=== PATIENT | female | born 1980 | race Caucasian/White ===

== ENCOUNTER 2018-10-24 19:48 | Observation (INO) | payer OTHER ==
[~2018-10-24] VITALS: Ht 175.3 cm; Wt 62.5 kg
[2018-10-24] MEDS ORDERED: AUGMENTIN 500-1 EACH PO (20:11)
[2018-10-24 21:03] LABS: EOS # 0.1 (0.04-0.40); EOS % 0.9 % (1.0-5.0); HEMATOCRIT 37.1 % (37.0-47.0); HEMOGLOBIN 11.9 g/dL (12.5-16.0); LYMPH# 2.4 (1.50-4.00); MEAN CELL VOLUME 93 fl (78-100); MEAN CORPUSCULAR HEMOGLOBIN 30 pg (27-31); MEAN CORPUSCULAR HGB CONC 32 g/dL (33-37); MONO # 1.1 (0.20-0.80); PLATELET COUNT 260 K/mm3 (130-400); WHITE BLOOD COUNT 16.3 K/mm3 (4.8-10.8)
[2018-10-24 21:04] LABS: NEU # 12.6 (1.40-6.50)
[2018-10-24 21:13] LABS: ALBUMIN 3.6 g/dL (3.5-5.0); CALCIUM 8.5 mg/dL (8.4-10.2); POTASSIUM 3.6 mmol/L (3.6-5.0); TOTAL BILIRUBIN 0.9 mg/dL (0.2-1.3); TOTAL PROTEIN 6.2 g/dL (6.3-8.2)
[2018-10-24 22:28] LABS: URINE APPEARANCE CLEAR; URINE BILIRUBIN NEGATIVE (NEGATIVE); URINE BLOOD 50 ery/uL (NEGATIVE); URINE COLOR YELLOW; URINE GLUCOSE NEGATIVE (NEGATIVE); URINE KETONE NEGATIVE (NEGATIVE); URINE LEUKOCYTE ESTERASE NEGATIVE (NEGATIVE); URINE NITRATE NEGATIVE (NEGATIVE); URINE PROTEIN(semi-quant) TRACE mg/dL (NEGATIVE); URINE UROBILINOGEN NORMAL (NORMAL)
[2018-10-24 22:29] LABS: URINE MUCUS PRESENT (NOT PRESENT)
[2018-10-24 22:56] VITALS: BP 97/60
[2018-10-24 22:57] VITALS: BP 97/60
[2018-10-24] MEDS ORDERED: AUGMENTIN 875-1 EAC1 PO (22:59)
[2018-10-25] VITALS (10 sets, daily range): BP systolic 90–129; BP diastolic 47–72
[2018-10-25 06:56] LABS: EOS # 0.1 (0.04-0.40); EOS % 1.1 % (1.0-5.0); HEMATOCRIT 29.2 % (37.0-47.0); HEMOGLOBIN 9.2 g/dL (12.5-16.0); LYMPH# 3.3 (1.50-4.00); MEAN CELL VOLUME 94 fl (78-100); MEAN CORPUSCULAR HEMOGLOBIN 30 pg (27-31); MEAN CORPUSCULAR HGB CONC 32 g/dL (33-37); MEAN PLATELET VOLUME 10.6 fl (7.4-10.4); MONO # 0.8 (0.20-0.80); NEU # 4.7 (1.40-6.50); PLATELET COUNT 209 K/mm3 (130-400); RED BLOOD COUNT 3.11 M/mm3 (4.10-5.30); RED CELL DISTRIBUTION WIDTH 13.1 % (11.5-14.5); WHITE BLOOD COUNT 8.9 K/mm3 (4.8-10.8)
[2018-10-25 07:16] LABS: CALCIUM 7.9 mg/dL (8.4-10.2); POTASSIUM 3.7 mmol/L (3.6-5.0)
[2018-10-25 14:34] LABS: HEMOGLOBIN 8.4 g/dL (12.5-16.0)
[2018-10-25] MEDS ORDERED: ZOLOFT25 M1 PO (15:11)
[2018-10-25] MEDS ORDERED: PHENERGAN 25 TA25 MG PO (15:11)
[2018-10-25] MEDS ORDERED: PROTONIX TR40 M1 PO (15:12)
[2018-10-25] MEDS ORDERED: ZOFRAN4 M2 PO (15:12)
== END 2018-10-25 15:29 | disposition home or self-care (01) ==
LOC: ED 19:48 → MED/SURG 22:10
PROVIDERS: Nurse Practitioner Primary Care; ADMIT Family Medicine
DX: K92.0 Hematemesis (principal); G43.909 Migraine, unspecified, not intractable, without status migrainosus; F17.210 Nicotine dependence, cigarettes, uncomplicated; D64.9 Anemia, unspecified; F43.9 Reaction to severe stress, unspecified; F41.9 Anxiety disorder, unspecified; K27.9 Peptic ulcer, site unspecified, unspecified as acute or chronic, without hemorrhage or perforation; Z79.1 Long term (current) use of non-steroidal anti-inflammatories (NSAID)
CPT/HCPCS: C9113; G0378; J2270; J2405; J2704; J3490; J7030; J7120

== ENCOUNTER → 2018-10-26 | Outpatient (CLI) | payer OTHER ==
[2018-10-25 15:16] VITALS: BP 107/65
[~2018-10-26] MED LIST: AUGMENTIN 500-1 EACH PO; AUGMENTIN 875-1 EAC1 PO; PHENERGAN 25 TA25 MG PO; PROTONIX TR40 M1 PO; ZOFRAN4 M2 PO; ZOLOFT25 M1 PO
[2018-10-26 08:05] LABS: HEMATOCRIT 30.5 % (37.0-47.0); HEMOGLOBIN 9.5 g/dL (12.5-16.0)
== END ==
LOC: LAB 07:17
PROVIDERS: Nurse Practitioner Primary Care
DX: K92.2 Gastrointestinal hemorrhage, unspecified (principal)